=== PATIENT | male | born 1965 | race Caucasian/White ===

== ENCOUNTER → 2019-01-29 | Outpatient (CLI) | payer BC ==
--- NOTE | 2019-01-29 13:05 | US ---
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 Lump in left groin area. Scanned area of concern left groin area no abnormalities seen. Images saved left groin show no worrisome solid cystic mass or fluid collection. No suspicious adenop athy. No bowel containing hernia. IMPRESSION: As above.
== END | disposition home or self-care (01) ==
LOC: RADUSWWP 12:12
PROVIDERS: ATTEND Internal Medicine
DX: D17.79 Benign lipomatous neoplasm of other sites (principal)

== ENCOUNTER → 2019-01-29 | Outpatient (CLI) | payer BC ==
--- NOTE | 2019-01-29 15:36 | MR ---
EXAMINATION TYPE: MR brain wo/w con DATE OF EXAM: 01/29/2019 COMPARISON: NONE HISTORY: Headache TECHNIQUE: Multiplanar, multisequence images of the brain and brainstem is performed without and with IV contras t, utilizing 8.5 mL intravenous Gadavist . FINDINGS: Diffusion weighted images demonstrate no evidence of a recent infarct or other diffusion ab normality. There is no extra-axial fluid collection. There are few punctate foci of T2/FLAIR hyperin tensity in the subcortical white matter such as in the frontal lobe in the superior frontal gyrus on FLAIR axial fat-sat image 24 and in the parietal lobe on the left on image 18. The ventricular system and cisternal spaces are normal in size and appearance. The brain volume is age appropriate. Midline structures demonstrate normal morphology. 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 No cerebral aqueduct narrowing. The aircraft structure mechanic niocervical junction appears within normal limits. Post contrast images demonstrate no abnormal enha ncement. The dural venous sinuses appear patent. There is mild mucosal thickening of the frontal, max illary and ethmoid sinuses. Sphenoid paranasal sinuses and mastoid air cells are well aerated. IMPRESSION: 1. No acute infarct, midline shift or mass effect. 2. 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 3. Few foci of nonspecific white matter change, most commonly on the basis of microangiopathy. No abn ormal intracranial enhancement.
== END | disposition home or self-care (01) ==
LOC: RADMRIMAIN 13:28
PROVIDERS: ATTEND Internal Medicine
DX: R90.89 Other abnormal findings on diagnostic imaging of central nervous system (principal); I73.9 Peripheral vascular disease, unspecified; G93.89 Other specified disorders of brain
CPT/HCPCS: 70553; A9585